=== PATIENT | female | born 2000 | race Caucasian/White ===

== ENCOUNTER 2022-05-19 01:11 | Emergency (ER) | payer BC, SELFPAY ==
[2022-05-19 01:17] VITALS: BP 145/78; PULSE 72; RESP 16; TEMP 36.8; O2SAT 98; BMI 25.0
--- NOTE | 2022-05-19 01:30 | ED.WOUNDLAC ---
HPI - Wound/Laceration General Date Seen: 05/19/22 Chief Complaint: Laceration/Wound Stated Complaint: Needs stitches left eyebrow Time Seen by Provider: 05/19/22 01:17 Source: patient Mode of arrival: ambulatory Limitations: no limitations History of Present Illness HPI narrative: Patient is delightful 21-year-old female here with her significant other for evaluation of a left-sided forehead laceration that occurred approximately 1 hour ago, there is no loss of consciousness, but she did crack or glasses. A laval lamp jumped up and hit her, she otherwise feels well, no nausea vomiting neck pain or discomfort or double vision. Onset (ago): minute(s) Location: face Body four view annotation: 1. Place: home Patient tetanus UTD: Yes Context: accidental Associated symptoms: none Related Data Home Medications Medication Instructions Recorded Confirmed albuterol sulfate 90 mcg/actuation 2 inh inhalation Q4H PRN 05/19/22 05/19/22 aerosol inhaler (ProAir HFA) Allergies Allergy/AdvReac Type Severity Reaction Status Date / Time amoxicillin [From Augmentin] Allergy Mild Hives Verified 05/19/22 01:21 azithromycin Allergy Mild Hives Verified 05/19/22 01:21 clavulanic acid Allergy Mild Hives Verified 05/19/22 01:21 [From Augmentin] sulfamethoxazole Allergy Mild Hives Verified 05/19/22 01:21 [From Sulfatrim] trimethoprim [From Sulfatrim] Allergy Mild Hives Verified 05/19/22 01:21 Review of Systems Status of ROS: Reports: 10 or more systems reviewed and unremarkable except as noted in History and below Exam Narrative: Exam Narrative: On examination she is in no apparent distress she is alert and oriented x3, pupils equal round react to light her TMs are normal her neck is supple full range of motion there is approximately a 1/2 inch laceration horizontal just above her left eyebrow, that is gaping. It straight. No foreign body is seen. Const: Vital Signs, click to edit/add: Vital Signs - 24 hr 05/19/22 01:17 Temperature 98.2 F Pulse Rate [Right Pulse Oximeter] 72 Respiratory Rate 16 Blood Pressure [Ri ght Upper Arm] 145/78 H Pulse Oximetry 98 Oxygen Delivery Me thod Room Air Documenting provider has reviewed patient's vital signs: yes Course Vital Signs Vital signs: Initial Vital Signs Temperature 98.2 F 05/19/22 01:17 Temperature Source Temporal Artery Scan 05/19/22 01:17 Pulse Rate 72 05/19/22 01:17 Respiratory Rate 16 05/19/22 01:17 Blood Pressure 145/78 H 05/19/22 01:17 Blood Pressure Mean 100 05/19/22 01:17 Blood Pressure Position Sitting 05/19/22 01:17 Pulse Oximetry 98 05/19/22 01:17 Oxygen Delivery Method 05/19/22 01:17 Vital Signs Temperature 98.2 F 05/19/22 01:17 Pulse Rate 72 05/19/22 01:17 Respiratory Rate 16 05/19/22 01:17 Blood Pressure 145/78 H 05/19/22 01:17 Pulse Oximetry 98 05/19/22 01:17 Oxygen Delivery Method 05/19/22 01:17 Temperature 98.2 F 05/19/22 01:17 Pulse Rate 72 05/19/22 01:17 Respiratory Rate 16 05/19/22 01:17 Blood Pressure 145/78 H 05/19/22 01:17 Pulse Oximetry 98 05/19/22 01:17 Oxygen Delivery Method 05/19/22 01:17 Discharge Plan Discharge Clinical Impression: Laceration Patient Disposition: Home w/ Parent or Adult Condition: Stable Instructions: Head Laceration (ED) Additional Instructions: Home rest bacitracin daily on the wound, you may shower, I would avoid swimming for the next week or so, signs of infection such as redness swelling then she should come back and be seen sutures should come out in 5 days, this can be done any primary care clinic, or ER Prescriptions: No Action albuterol sulfate [ProAir HFA] 90 mcg/actuation HFA aerosol inhaler 2 inh inhalation Q4H PRN Stand Alone Forms: MyHealth Info Instructions Procedures Laceration Laceration 1: Verification/time out: correct patient and correct site Name of person performing procedure: Art Chopra Site: face Side (If applicable): left Size (cm): 3 Description: linear Depth: simple, single layer Local Anesthetic: lidocaine 1% and with epi Amount of anesthesia used (mL): 4 Pre-repair: wound explored, irrigated extensively and deep structures intact Skin layer closed with: nylon Size (cm): 4-0 Number of sutures: 2 Technique: simple, interrupted Wound cleansing: sterile water Estimated blood loss (if any): none Conclusion: patient tolerated procedure
[2022-05-19] MEDS: TETANUS/DIPHTH/PERTUSSIS 0.5 ML SYRINGE IM (01:48)
[2022-05-19 02:08] VITALS: BP 135/74; PULSE 75; RESP 16; TEMP 36.6; O2SAT 98
[2022-05-19 02:11] VITALS: BP 135/74; PULSE 75; RESP 16; TEMP 36.6
== END 2022-05-19 02:12 | disposition home or self-care (01) ==
PROVIDERS: Emergency Provider Family Medicine
DX: S01.112A Laceration without foreign body of left eyelid and periocular area, initial encounter (principal); W26.9XXA Contact with unspecified sharp object(s), initial encounter
CPT/HCPCS: 12011; 90471; 90715; 99283